=== PATIENT | male | born 1995 | race Caucasian/White ===

== ENCOUNTER 2018-06-29 05:50 | Emergency (ER) | payer OTHER ==
--- NOTE | 2018-06-29 06:24 | ED ---
URI HPI - General Chief Complaint: Upper Respiratory Infection Stated Complaint: ENT-flu symptoms Time Seen by Provider: 06/29/18 06:09 Source: patient Mode of arrival: ambulatory Limitations: no limitations - History of Present Illness Initial Comments: This patient is a 23-year-old man who presents to be evaluated for flulike symptoms. He states he was in his usual state of health until Sunday morning. When he got up from sleep she noticed that he was feeling fatigued, having chills, and a nonproductive cough. He also started experiencing body aches. He states that he would back to bed when he woke he was not really feeling much better. When the symptoms have not resolved by this morning he felt he should be seen here. MD Complaint: fever, cough, other Onset/Timin -: hour(s) Severity: moderate Quality: aching Consistency: constant Improves With: nothing Worsens With: nothing Context: sick contacts Associated Symptoms: fever, chills, myalgias, cough, nausea Treatments Prior to Arrival: none - Related Data Allergies Allergy/AdvReac Type Severity Reaction Status Date / Time metoclopramide [From Reglan] Allergy Confusion Verified 06/29/18 06:06 Review of Systems ROS Statement: Those systems with pertinent positive or pertinent negative responses have been documented in the HPI. ROS Other: All systems not noted in ROS Statement are negative. Constitutional: Reports: fever, chills Respiratory: Reports: cough. Denies: dyspnea, wheezes, hemoptysis Cardiovascular: Denies: chest pain, palpitations, orthopnea Endocrine: Reports: fatigue Gastrointestinal: Reports: nausea. Denies: abdominal pain, vomiting, diarrhea Genitourinary: Denies: dysuria, hematuria Musculoskeletal: Denies: back pain Skin: Denies: rash Neurological: Denies: headache, weakness, numbness Past Medical History Past Medical History: No Reported History History of Any Multi-Drug Resistant Organisms: None Reported Past Surgical History: No Surgical Hx Reported Past Psychological History: ADD/ADHD Smoking Status: Never smoker Past Alcohol Use History: Occasional Past Drug Use History: None Reported General Exam Limitations: no limitations General appearance: alert, in no apparent distress Head exam: Present: atraumatic, normocephalic Eye exam: Present: normal appearance. Absent: scleral icterus, conjunctival injection ENT exam: Present: normal oropharynx Neck exam: Present: normal inspection, full ROM. Absent: meningismus Respiratory exam: Present: normal lung sounds bilaterally. Absent: respiratory distress, wheezes, rales, rhonchi, stridor Cardiovascular Exam: Present: normal rhythm, tachycardia, normal heart sounds. Absent: systolic murmur, diastolic murmur, rubs, gallop GI/Abdominal exam: Present: soft. Absent: distended, tenderness, guarding, rebound, rigid, mass Extremities exam: Present: normal inspection, normal capillary refill. Absent: pedal edema, calf tenderness Back exam: Present: normal inspection. Absent: CVA tenderness (R), CVA tenderness (L) Neurological exam: Present: alert Skin exam: Present: warm, dry, intact, normal color. Absent: rash Course Vital Signs 06/29/18 06:03 Temperature 102.2 F H Pulse Rate 128 H Respiratory 20 Rate Blood Pressure 131/68 O2 Sat by Pulse 97 Oximetry Medical Decision Making - Lab Data Lab Results 06/29/18 Range/Units 06:20 Influenza Type A RNA Detected H (Not Detectd) Influenza Type B (PCR) Not Detected (Not Detectd) Disposition Clinical Impression: Influenza Disposition: HOME SELF-CARE Condition: Good Instructions: Influenza (DC) Is patient prescribed a controlled substance at d/c from ED?: No Referrals: Ronnie Vazquez DO [Primary Care Provider] - 1-2 days
[2018-06-29 07:51] VITALS: BP 102/57; PULSE 121; RESP 18; TEMP 100.8
== END 2018-06-29 07:51 | disposition home or self-care (01) ==
LOC: EC 05:50
DX: J11.1 Influenza due to unidentified influenza virus with other respiratory manifestations (principal); Z88.8 Allergy status to other drugs, medicaments and biological substances
CPT/HCPCS: 87502; 99283

== ENCOUNTER 2019-01-23 04:29 | Emergency (ER) | payer OTHER ==
[2019-01-23] MEDS ORDERED: IBUPROFEN 400 MG TAB PO STA (04:56)
[2019-01-23] MEDS ORDERED: LIDOCAINE VISCOUS 2% 15 ML CUP MUCOUS MEM STA (04:56)
--- NOTE | 2019-01-23 06:20 | ED ---
Fever HPI - General Chief Complaint: ENT Stated Complaint: NVD Time Seen by Provider: 01/23/19 04:49 Source: patient Mode of arrival: ambulatory Limitations: no limitations - History of Present Illness Initial Comments: Patient is 23-year-old man presenting with 2 days of sore throat, cough, fever and body aches. He initially started with sore throat and then had developed cough as well. He was seen in the urgent care where they did a strep test was negative. Patient resents to have reevaluation. No dyspnea. No chest pain. No abdominal pain, nausea or vomiting. No change in urination. No headache or neck stiffness. MD Complaint: fever, malaise -: days(s) Temperature Source: oral Associated Symptoms: myalgias, sore throat, cough Treatments Prior to Arrival: none - Related Data Home Medications Medication Instructions Recorded Confirmed Lisdexamfetamine Dimesylate 40 mg PO QAM 01/23/19 01/23/19 [Vyvanse] Previous Rx's Medication Instructions Recorded Lidocaine Viscous [Xylocaine 5 ml PO Q3HR PRN #100 ml 01/23/19 Viscous 2%] Allergies Allergy/AdvReac Type Severity Reaction Status Date / Time metoclopramide [From Reglan] Allergy Confusion Verified 01/23/19 08:04 Review of Systems ROS Statement: Those systems with pertinent positive or pertinent negative responses have been documented in the HPI. ROS Other: All systems not noted in ROS Statement are negative. Constitutional: Reports: fever, chills ENT: Reports: throat pain Respiratory: Reports: cough Cardiovascular: Denies: chest pain Gastrointestinal: Denies: abdominal pain, vomiting, diarrhea Genitourinary: Denies: dysuria, hematuria Musculoskeletal: Reports: myalgia Skin: Denies: rash Neurological: Denies: headache, weakness Past Medical History Past Medical History: No Reported History History of Any Multi-Drug Resistant Organisms: None Reported Past Surgical History: No Surgical Hx Reported Past Psychological History: ADD/ADHD Smoking Status: Never smoker Past Alcohol Use History: Occasional Past Drug Use History: None Reported General Exam Limitations: no limitations General appearance: alert, in no apparent distress Head exam: Present: atraumatic, normocephalic Eye exam: Present: normal appearance. Absent: scleral icterus, conjunctival injection ENT exam: Present: mucous membranes moist, TM's normal bilaterally, normal external ear exam, other (The patient has a few small erythematous ulcerations to the soft palate area. There is no tonsillar exudate. No evidence of peritonsillar abscess.) Neck exam: Present: normal inspection, full ROM, lymphadenopathy. Absent: tenderness, meningismus Respiratory exam: Present: normal lung sounds bilaterally. Absent: respiratory distress, wheezes, rales, rhonchi, stridor Cardiovascular Exam: Present: normal rhythm, tachycardia, normal heart sounds. Absent: systolic murmur, diastolic murmur, rubs, gallop GI/Abdominal exam: Present: soft. Absent: distended, tenderness, guarding, rebound, rigid, mass Extremities exam: Present: normal inspection Back exam: Present: normal inspection. Absent: CVA tenderness (R), CVA tenderness (L) Neurological exam: Present: alert Skin exam: Present: warm, dry, intact, normal color. Absent: rash Course Vital Signs 01/23/19 01/23/19 01/23/19 04:34 06:12 08:11 Temperature 100.8 F H 100.8 F H 99.3 F Pulse Rate 117 H 101 H Respiratory 20 18 Rate Blood Pressure 118/78 112/70 O2 Sat by Pulse 97 99 Oximetry Medical Decision Making - Lab Data Lab Results 01/23/19 Range/Units 04:55 Group A Strep Rapid Negative (Negative) - EKG Data -: EKG Interpreted by Mo EKG shows normal: sinus rhythm, axis (Left axis deviation), intervals (ER interval is 206 ms, borderline. QRS duration 116 ms. QTC 480 ms, prolonged.), QRS complexes (Incomplete left bundle branch block) Rate: normal (Rate 81 bpm) Interpretation: other (Possible pulmonary disease pattern) Disposition Clinical Impression: Herpangina Disposition: HOME SELF-CARE Condition: Good Instructions (If sedation given, give patient instructions): Pharyngitis (ED) Prescriptions: Lidocaine Viscous [Xylocaine Viscous 2%] 5 ml PO Q3HR PRN #100 ml PRN Reason: Sore Throat Is patient prescribed a controlled substance at d/c from ED?: No Referrals: Ronnie Vazquez DO [Primary Care Provider] - 1-2 days
--- NOTE | 2019-01-23 07:35 | XR ---
EXAMINATION TYPE: XR chest 2V DATE OF EXAM: 01/23/2019 COMPARISON: 10/03/2000 TECHNIQUE: PA and lateral views submitted. HISTORY: Femur FINDINGS: The lungs are clear and there is no pneumothorax, pleural effusion, or focal pneumonia. IMPRESSION: 1. No acute process.
[2019-01-23 08:12] VITALS: BP 112/70; PULSE 101; RESP 18; TEMP 99.3
== END 2019-01-23 08:11 | disposition home or self-care (01) ==
LOC: EC 04:29
DX: B08.5 Enteroviral vesicular pharyngitis (principal); F90.9 Attention-deficit hyperactivity disorder, unspecified type; R05 Cough; R53.81 Other malaise; Z79.899 Other long term (current) drug therapy; Z88.8 Allergy status to other drugs, medicaments and biological substances
CPT/HCPCS: 71046; 87081; 87430; 99284

== ENCOUNTER 2020-09-14 19:40 | Emergency (ER) | payer OTHER ==
[2020-09-14 19:51] VITALS: RESP 18
[2020-09-14] MEDS ORDERED: KETOROLAC 15 MG/ML 1 ML VIAL IM STA (19:55)
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
[2020-09-14 21:23] VITALS: BP 149/75; PULSE 105; TEMP 98.4
== END 2020-09-14 21:21 | disposition home or self-care (01) ==
LOC: EC 19:40
DX: T23.031A Burn of unspecified degree of multiple right fingers (nail), not including thumb, initial encounter (principal); F90.9 Attention-deficit hyperactivity disorder, unspecified type; Z79.899 Other long term (current) drug therapy; Z88.8 Allergy status to other drugs, medicaments and biological substances; X19.XXXA Contact with other heat and hot substances, initial encounter; Y92.69 Other specified industrial and construction area as the place of occurrence of the external cause; Y99.0 Civilian activity done for income or pay
CPT/HCPCS: 99283; 96372; J1885